=== PATIENT | female | born 1945 | race Caucasian/White ===

== ENCOUNTER 2017-07-15 11:05 | Outpatient (CLI) | payer MEDICARE, BC | END 2017-07-15 11:06 | disposition home or self-care (01) | LOC: BICMAMMO 11:05 | PROVIDERS: ATTEND Obstetrics & Gynecology | DX: Z12.31 Encounter for screening mammogram for malignant neoplasm of breast (principal) | CPT/HCPCS: 77063; 77067 ==

== ENCOUNTER 2018-01-20 09:38 | Emergency (ER) | payer MEDICARE, BC ==
[2018-01-20] MEDS ORDERED: Lorazepam 2 MG/ML VIAL ONE (10:01)
[2018-01-20 10:42] LABS: ALT (SGPT) 16 U/L (8-55); AST (SGOT) 19 U/L (5-34); Albumin 4.1 g/dL (3.4-4.8); Alkaline Phosphatase 81 U/L (40-150); Anion Gap 14 mmol/L (10-20); BUN (Urea Nitrogen) 18 mg/dL (9.8-20.1); Bilirubin, Total 0.5 mg/dL (0.2-1.2); Calc. Creatinine Clearance 0 mL/min (70-130); Calcium 9.2 mg/dL (7.8-10.44); Carbon Dioxide 23 mmol/L (23-31); Chloride 106 mmol/L (98-107); Estimated GFR-MDRD 71; Globulin 2.7 g/dL (2.4-3.5); Glucose 122 mg/dL (83-110); Potassium 3.8 mmol/L (3.5-5.1); Protein, Total 6.8 g/dL (6.0-8.3); Sodium 139 mmol/L (136-145)
[2018-01-20 10:48] LABS: CKMB 1.7 ng/mL (0-6.6); Troponin I Less than 0.010 ng/mL (< 0.028)
[2018-01-20 10:55] LABS: #Eosinphils 0.1 thou/uL (0.0-0.7); #Lymphocytes 2.1 thou/uL (1.20-3.40); #Monocytes 0.4 thou/uL (0.11-0.59); #Neutrophils 5.1 thou/uL (1.40-6.50); %Basophils 0.4 % (0.0-1.0); %Eosinophils 1.6 % (0.0-10.0); %Monocytes 5.7 % (0.0-10.0); %Neutrophils 65.3 % (42.0-75.0); Hemoglobin 13.9 g/dL (12.0-16.0); Mean Corpuscular HGB CONC 32.5 g/dL (32.0-36.0); Mean Corpuscular Hemoglobin 30.7 pg (27.0-31.0); Mean Corpuscular Volume 94.4 fL (78.0-98.0); Mean Platelet Volume 7.9 fL (7.4-10.4); Platelet Count 292 thou/uL (130-400); RBC Distribution Width 11.4 % (11.5-14.5); Red Blood Cell (RBC) Count 4.51 mill/uL (4.20-5.40); White Blood Cell (WBC) Count 7.7 thou/uL (4.8-10.8)
--- NOTE | 2018-01-20 11:34 | CT ---
CT BRAIN WITHOUT CONTRAST: History: Generalized malaise and weakness. Numbness in all extremities. FINDINGS: No evidence of acute hemorrhage, infarct, midline shift, or abnormal extraaxial fluid collections are seen. Ventricular size is normal and the basilar cisterns patent. The bony calvarium is intact. The visualized paranasal sinuses and mastoid air cells are well aerated. IMPRESSION: No CT evidence of acute intracranial process. POS: [facility]
== END 2018-01-20 11:53 | disposition home or self-care (01) ==
LOC: ERS 09:38
DX: F41.9 Anxiety disorder, unspecified (principal); K21.9 Gastro-esophageal reflux disease without esophagitis; E78.2 Mixed hyperlipidemia; I10 Essential (primary) hypertension; Z79.899 Other long term (current) drug therapy; Z79.82 Long term (current) use of aspirin
CPT/HCPCS: 70450; 80053; 82553; 84484; 85025; 93005; 96374; J2060

== ENCOUNTER 2018-07-16 10:22 | Outpatient (CLI) | payer MEDICARE, BC ==
--- NOTE | 2018-07-21 13:23 | MMO ---
Bilateral MAMMO Bilat Screen [facility]. CLINICAL HISTORY: Patient is 72 years old and is seen for screening. The patient has no family history of breast cancer. The patient has no personal history of cancer. The patient has a history of left Excisional Biopsy in 2015 - benign. VIEWS: The views performed were: bilateral craniocaudal with tomosynthesis and bilateral mediolateral oblique with tomosynthesis. FILMS COMPARED: The present examination has been compared to prior imaging studies performed at [facility] on 02/19/2000, 02/20/2001, 03/17/2002, 03/18/2003, 04/04/2004, 04/17/2005, 04/17/2006, 05/03/2008, 05/04/2009, 05/05/2010, 05/14/2011, 05/15/2012, 06/11/2013, 06/14/2014, 06/18/2014, 06/18/2015, 07/04/2016 and 07/15/2017. MAMMOGRAM FINDINGS: There are scattered fibroglandular densities. There are benign appearing calcifications seen in both breasts. There are no suspicious masses, calcifications or areas of architectural distortion. IMPRESSION: THERE IS NO MAMMOGRAPHIC EVIDENCE OF MALIGNANCY. A ROUTINE FOLLOW-UP MAMMOGRAM IN 1 YEAR IS RECOMMENDED. THE RESULTS OF THIS EXAM WERE SENT TO THE PATIENT. ACR BI-RADS Category 2 - Benign finding MAMMOGRAPHY NOTE: 1. A negative mammogram report should not delay a biopsy if a dominant of clinically suspicious mass is present. 2. Approximately 10% to 15% of breast cancers are not detected by mammography. 3. Adenosis and dense breasts may obscure an underlying neoplasm.
== END 2018-07-16 10:23 | disposition home or self-care (01) ==
LOC: BICMAMMO 10:22
PROVIDERS: ATTEND Obstetrics & Gynecology
DX: Z12.31 Encounter for screening mammogram for malignant neoplasm of breast (principal); Z91.89 Other specified personal risk factors, not elsewhere classified
CPT/HCPCS: 77063; 77067

== ENCOUNTER 2019-09-18 10:05 | Outpatient (CLI) | payer MEDICARE, BC ==
--- NOTE | 2019-09-18 10:59 | MMO ---
Bilateral MAMMO Bilat Screen [facility]. CLINICAL HISTORY: Patient is 73 years old and is seen for screening. The patient has no family history of breast cancer. The patient has no personal history of cancer. The patient has a history of left Excisional Biopsy in 2015 - benign. VIEWS: The views performed were: bilateral craniocaudal with tomosynthesis and bilateral mediolateral oblique with tomosynthesis. FILMS COMPARED: The present examination has been compared to prior imaging studies performed at [facility] on 07/04/2016, 07/15/2017 and 07/16/2018. This study has been interpreted with the assistance of computer-aided detection. MAMMOGRAM FINDINGS: There are scattered fibroglandular densities. There are stable benign appearing calcifications seen in both breasts. There are no suspicious masses, suspicious calcifications, or new areas of architectural distortion. IMPRESSION: THERE IS NO MAMMOGRAPHIC EVIDENCE OF MALIGNANCY. A ROUTINE FOLLOW-UP MAMMOGRAM IN 1 YEAR IS RECOMMENDED. THE RESULTS OF THIS EXAM WERE SENT TO THE PATIENT. ACR BI-RADS Category 2 - Benign finding MAMMOGRAPHY NOTE: 1. A negative mammogram report should not delay a biopsy if a dominant of clinically suspicious mass is present. 2. Approximately 10% to 15% of breast cancers are not detected by mammography. 3. Adenosis and dense breasts may obscure an underlying neoplasm. Reported by: ELLEN RUIZ MD Electonically Signed: [id number]
== END 2019-09-18 10:06 | disposition home or self-care (01) ==
LOC: BICMAMMO 10:05
PROVIDERS: ATTEND Obstetrics & Gynecology
DX: Z12.31 Encounter for screening mammogram for malignant neoplasm of breast (principal); Z91.89 Other specified personal risk factors, not elsewhere classified
CPT/HCPCS: 77063; 77067

== ENCOUNTER 2020-08-25 11:30 | Outpatient (CLI) | payer MEDICARE, BC | END 2020-08-25 11:31 | disposition home or self-care (01) | LOC: BICRAD 11:30 | PROVIDERS: ATTEND Internal Medicine Cardiovascular Disease | DX: R06.02 Shortness of breath (principal) | CPT/HCPCS: 71046 ==

== ENCOUNTER 2020-09-06 11:52 | Outpatient (CLI) | payer MEDICARE, BC ==
[~2020-09-06 11:52] MED LIST: Iopamidol 370 76% 100 ML VIAL ONE
== END 2020-09-06 11:53 | disposition home or self-care (01) ==
LOC: CT 11:52
PROVIDERS: ATTEND Thoracic Surgery (Cardiothoracic Vascular Surgery)
DX: K44.9 Diaphragmatic hernia without obstruction or gangrene (principal); R91.8 Other nonspecific abnormal finding of lung field
CPT/HCPCS: 71260; 74160; 82565; Q9967

== ENCOUNTER 2020-09-22 09:13 | Outpatient (CLI) | payer MEDICARE, BC ==
[2020-09-22 10:07] LABS: #Eosinphils 0.1 10x3/uL (0.0-0.5); #Monocytes 0.5 10x3/uL (0.0-1.1); #Neutrophils 4.6 10x3/uL (1.5-8.4); %Basophils 0.6 % (0.0-2.0); %Eosinophils 2.1 % (0.0-6.0); %Lymphocytes 21.7 % (18.0-47.0); %Monocytes 7.5 % (0.0-10.0); %Neutrophils 67.5 % (40.0-75.0); Hemoglobin 13.4 g/dL (12.0-15.5); Mean Corpuscular HGB CONC 31.8 g/dL (32.0-36.0); Mean Corpuscular Hemoglobin 30.1 pg (27.0-33.0); Mean Corpuscular Volume 94.6 fl (81.6-98.3); Mean Platelet Volume 10.4 fl (7.4-10.4); Platelet Count 280 10x3/uL (150-450); RBC Distribution Width 12.7 % (11.5-14.5); Red Blood Cell (RBC) Count 4.45 10x6/uL (3.90-5.03); White Blood Cell (WBC) Count 6.8 10x3/uL (3.5-10.5)
[2020-09-22 11:05] LABS: Anion Gap 14 mmol/L (10-20); BUN (Urea Nitrogen) 18 mg/dL (9.8-20.1); Calc. Creatinine Clearance 0 mL/min (70-130); Calcium 9.6 mg/dL (7.8-10.44); Carbon Dioxide 26 mmol/L (23-31); Chloride 107 mmol/L (98-107); Glucose 65 mg/dL (83-110); Potassium 4.6 mmol/L (3.5-5.1); Sodium 142 mmol/L (136-145)
[2020-09-23 03:29] LABS: SARS-CoV-2 NAA Rapid Test Not Detected (NotDetected)
== END 2020-09-22 09:14 | disposition home or self-care (01) ==
LOC: LABBT 09:13
PROVIDERS: ATTEND Surgery
DX: Z01.812 Encounter for preprocedural laboratory examination (principal); K44.9 Diaphragmatic hernia without obstruction or gangrene; Z20.822 Contact with and (suspected) exposure to COVID-19
CPT/HCPCS: 80048; 85025; U0002; U0005; 87635; U0003

== ENCOUNTER 2020-09-22 09:15 | Observation (INO) | payer MEDICARE, BC ==
[2020-09-22 13:48] VITALS: BMI 26.5
[2020-09-27] MEDS ORDERED: Levofloxacin 500 mg/D5W 100 ml Premix Bag ONE (10:36)
[2020-09-27] MEDS ORDERED: Bupivacaine 0.25% HCL 30 ML VIAL ONE (10:37)
[2020-09-27] MEDS ORDERED: Lidocaine 1% w/Epinephrine 1:100K 20 ML VIAL ONE (10:37)
[2020-09-27] MEDS ORDERED: Fentanyl 100 MCG/2 ML VIAL ONE ×3 (10:39→15:21)
[2020-09-27] MEDS ORDERED: PROPOFOL 200 MG/20 ML VIAL ONE (10:52)
[2020-09-27] MEDS ORDERED: Rocuronium Bromide 10 MG/ML (10ML VIAL) ONE (10:52)
[2020-09-27] MEDS ORDERED: Dexamethasone 20 MG/5 ML VIAL ONE (10:52)
[2020-09-27] MEDS ORDERED: ePHEDrine Sulfate 50 MG/10 ML VIAL ONE ×2 (10:52→11:57)
[2020-09-27] MEDS ORDERED: PHENYLEPHRINE-NS 100 MCG/ML 10 ML SYRINGE ONE (10:52)
[2020-09-27] MEDS ORDERED: Lidocaine 1% PF 5 ML VIAL ONE (10:52)
[2020-09-27] MEDS ORDERED: Ondansetron PF 4 MG/2 ML Vial ONE (10:52)
[2020-09-27] MEDS ORDERED: Glycopyrrolate 0.2 MG/ML 5 ML SYRINGE ONE (10:52)
[2020-09-27] MEDS ORDERED: Promethazine HCl 25 MG/ML VIAL SLOW IVP PRN (12:58)
[2020-09-27] MEDS ORDERED: Ondansetron HCl/PF 4 MG/2 ML Vial IVP PRN (12:58)
[2020-09-27] MEDS ORDERED: Ketorolac Tromethamine 30 MG/ML VIAL IVP PRN (12:58)
[2020-09-27] MEDS ORDERED: Meperidine HCl/PF 25 MG/ML VIAL SLOW IVP PRN (12:58)
[2020-09-27] MEDS ORDERED: HYDROmorphone 2 MG/ML VIAL SLOW IVP PRN (12:58)
[2020-09-27] MEDS ORDERED: HYDROmorphone 2 MG/ML VIAL ONE (13:23)
[2020-09-27] MEDS ORDERED: Morphine 2 MG/ML VIAL SLOW IVP PRN (16:33)
[2020-09-27] MEDS ORDERED: Dextrose 50% Abboject 50 ML SYRINGE SLOW IVP PRN (16:33)
[2020-09-27] MEDS ORDERED: Promethazine HCl 25 MG/ML VIAL IM PRN (16:33)
[2020-09-27] MEDS ORDERED: Morphine 4 MG/ML VIAL SLOW IVP PRN (16:33)
[2020-09-27] MEDS ORDERED: Ondansetron PF 4 MG/2 ML Vial IVP PRN (16:33)
[2020-09-27] MEDS ORDERED: hydrALAZINE 20 MG/ML VIAL SLOW IVP PRN (16:33)
[2020-09-27] MEDS ORDERED: Dextrose 5% in Water 1,000 ML IV PRN (16:33)
[2020-09-27] MEDS: Sodium Chloride 0.9% 1,000 ML IV SCH (19:42)
[2020-09-27] MEDS: Losartan 25 MG TAB PO SCH (20:46)
[2020-09-27] MEDS: ALPRAZolam 0.25 MG TAB PO SCH (20:47)
[2020-09-27] MEDS: Hydrocodone-Acetamin 15 ML UDCUP PO PRN (20:47)
[2020-09-27] MEDS: Escitalopram Oxalate 10 mg Tablet PO SCH (20:47)
[2020-09-28] MEDS: Hydrocodone-Acetamin 15 ML UDCUP PO PRN ×4 (02:57→22:39)
[2020-09-28] MEDS: Enoxaparin Sodium 40 MG/0.4 ML SYRINGE SC SCH (08:15)
[2020-09-28] MEDS: medroxyPROGESTERone Acetate 2.5 MG TAB PO SCH (08:16)
[2020-09-28] MEDS: Pantoprazole 40 MG VIAL IVP SCH (08:17)
[2020-09-28] MEDS ORDERED: Docusate 100 MG CAP PO SCH ×2 (10:00→12:15)
[2020-09-28] MEDS ORDERED: Estradiol 1 MG TAB PO SCH (12:15)
[2020-09-28] MEDS: Sodium Chloride 0.9% 1,000 ML IV SCH (12:43)
[2020-09-28] MEDS: Ibuprofen 600 MG TAB PO PRN (18:16)
[2020-09-28] MEDS: ALPRAZolam 0.25 MG TAB PO SCH (20:16)
[2020-09-28] MEDS: Losartan 25 MG TAB PO SCH (20:16)
[2020-09-28] MEDS: Escitalopram Oxalate 10 mg Tablet PO SCH (20:17)
[2020-09-29] MEDS: Ibuprofen 600 MG TAB PO PRN (06:41)
[2020-09-29] MEDS ORDERED: Estradiol 1 MG TAB PO SCH (09:00)
[2020-09-29] MEDS: Sodium Chloride 0.9% 1,000 ML IV SCH (09:01)
[2020-09-29] MEDS: Enoxaparin Sodium 40 MG/0.4 ML SYRINGE SC SCH (09:01)
[2020-09-29] MEDS: Pantoprazole 40 MG VIAL IVP SCH (09:02)
[2020-09-29] MEDS: medroxyPROGESTERone Acetate 2.5 MG TAB PO SCH (09:02)
[2020-09-29 11:24] VITALS: BP 103/52; TEMP 98.1
[2020-09-30] MEDS ORDERED: Docusate 100 MG CAP PO SCH (10:00)
== END 2020-09-29 11:15 | disposition home or self-care (01) ==
LOC: SURG A 09-27 09:12 → INTOOBSV 09-27 09:12 → EDSTATUS 09-27 09:15 → SJJU 09-27 16:10
PROVIDERS: ADMIT Surgery; ATTEND Surgery
PROC: 0DV44ZZ Restriction of Esophagogastric Junction, Percutaneous Endoscopic Approach (ICD-10-PCS; principal; 2020-09-27)
DX: K44.9 Diaphragmatic hernia without obstruction or gangrene (principal); K21.9 Gastro-esophageal reflux disease without esophagitis; I10 Essential (primary) hypertension; M81.0 Age-related osteoporosis without current pathological fracture; E78.5 Hyperlipidemia, unspecified; Z79.82 Long term (current) use of aspirin; Z79.83 Long term (current) use of bisphosphonates; Z79.899 Other long term (current) drug therapy; Z88.0 Allergy status to penicillin; Z88.1 Allergy status to other antibiotic agents; M25.519 Pain in unspecified shoulder; R07.89 Other chest pain
CPT/HCPCS: 96372; 96374; 96376; C9113; G0378; J1100; J1170; J1650; J1956; J2405; J2704; J3010; S0020

== ENCOUNTER 2020-10-24 10:46 | Outpatient (CLI) | payer MEDICARE, BC | END 2020-10-24 10:47 | disposition home or self-care (01) | LOC: BICMAMMO 10:46 | PROVIDERS: ATTEND Obstetrics & Gynecology | DX: Z12.31 Encounter for screening mammogram for malignant neoplasm of breast (principal); Z91.89 Other specified personal risk factors, not elsewhere classified | CPT/HCPCS: 77063; 77067 ==

== ENCOUNTER 2021-03-02 10:05 | Outpatient (CLI) | payer MEDICARE, BC ==
[2021-03-03 00:05] LABS: SARS-CoV-2 PCR by NAA Not Detected (NotDetected)
== END 2021-03-02 10:06 | disposition home or self-care (01) ==
LOC: LABBT 10:05
PROVIDERS: ATTEND Internal Medicine Gastroenterology
DX: Z01.812 Encounter for preprocedural laboratory examination (principal); R13.10 Dysphagia, unspecified; Z20.822 Contact with and (suspected) exposure to COVID-19
CPT/HCPCS: U0003; U0005

== ENCOUNTER 2021-03-07 09:32 | Outpatient (CLI) | payer MEDICARE, BC | END 2021-03-07 09:33 | disposition home or self-care (01) | LOC: RAD 09:32 | PROVIDERS: ATTEND Internal Medicine Gastroenterology | DX: R13.10 Dysphagia, unspecified (principal); Z11.59 Encounter for screening for other viral diseases | CPT/HCPCS: 74220 ==

== ENCOUNTER 2021-03-24 08:58 | Outpatient (CLI) | payer MEDICARE, BC ==
[2021-03-24 23:17] LABS: SARS-CoV-2 PCR by NAA Not Detected (NotDetected)
== END 2021-03-24 08:59 | disposition home or self-care (01) ==
LOC: LABBT 08:58
PROVIDERS: ATTEND Surgery
DX: Z01.812 Encounter for preprocedural laboratory examination (principal); K44.9 Diaphragmatic hernia without obstruction or gangrene; Z20.822 Contact with and (suspected) exposure to COVID-19
CPT/HCPCS: U0003; U0005

== ENCOUNTER 2021-03-29 10:30 | Day surgery (SDC) | payer MEDICARE, BC ==
[2021-03-29 15:19] VITALS: BMI 25.2
[2021-03-30] MEDS ORDERED: Fentanyl 100 MCG/2 ML VIAL ONE (06:12)
[2021-03-30] MEDS ORDERED: Bupivacaine 0.25% HCL 30 ML VIAL ONE (07:07)
[2021-03-30] MEDS ORDERED: Lidocaine 1% w/Epinephrine 1:100K 20 ML VIAL ONE (07:07)
== END 2021-03-29 13:35 | disposition home or self-care (01) ==
LOC: SDC 10:30
PROVIDERS: ATTEND Surgery
DX: K44.9 Diaphragmatic hernia without obstruction or gangrene (principal); Z53.29 Procedure and treatment not carried out because of patient's decision for other reasons; Z79.82 Long term (current) use of aspirin; Z79.83 Long term (current) use of bisphosphonates; Z79.899 Other long term (current) drug therapy; Z88.0 Allergy status to penicillin; Z88.1 Allergy status to other antibiotic agents
CPT/HCPCS: 93005; 93010; J3010; S0020

== ENCOUNTER 2021-03-30 06:15 | Inpatient (IN) | payer MEDICARE, BC ==
[2021-03-30] MEDS ORDERED: Levofloxacin 500 mg/D5W 100 ml Premix Bag ONE (07:17)
[2021-03-30] MEDS ORDERED: Rocuronium Bromide 10 MG/ML (10ML VIAL) ONE (07:34)
[2021-03-30] MEDS ORDERED: Dexamethasone 20 MG/5 ML VIAL ONE (07:34)
[2021-03-30] MEDS ORDERED: Lidocaine 1% PF 5 ML VIAL ONE (07:34)
[2021-03-30] MEDS ORDERED: Phenylephrine 10 MG/ML VIAL ONE (07:34)
[2021-03-30] MEDS ORDERED: PROPOFOL 200 MG/20 ML VIAL ONE (07:34)
[2021-03-30] MEDS ORDERED: ePHEDrine 50 MG/ML VIAL ONE (07:34)
[2021-03-30] MEDS ORDERED: Glycopyrrolate 0.2 MG/ML 5 ML SYRINGE ONE (07:34)
[2021-03-30] MEDS ORDERED: Ondansetron PF 4 MG/2 ML Vial ONE (07:34)
[2021-03-30] MEDS ORDERED: Promethazine HCl 25 MG/ML VIAL IVPB PRN (09:50)
[2021-03-30] MEDS ORDERED: Promethazine HCl 25 MG/ML VIAL IM PRN ×2 (09:50→12:00)
[2021-03-30] MEDS ORDERED: Ondansetron HCl/PF 4 MG/2 ML Vial IVP PRN (09:50)
[2021-03-30] MEDS ORDERED: Fentanyl 100 MCG/2 ML VIAL ONE ×3 (10:00→10:47)
[2021-03-30] MEDS ORDERED: Dextrose 5% in Water 1,000 ML IV PRN (12:00)
[2021-03-30] MEDS ORDERED: Morphine 4 MG/ML VIAL SLOW IVP PRN (12:00)
[2021-03-30] MEDS ORDERED: Ondansetron PF 4 MG/2 ML Vial IVP PRN (12:00)
[2021-03-30] MEDS ORDERED: hydrALAZINE 20 MG/ML VIAL SLOW IVP PRN (12:00)
[2021-03-30] MEDS ORDERED: Dextrose 50% Abboject 50 ML SYRINGE SLOW IVP PRN (12:00)
[2021-03-30] MEDS: Hydrocodone-Acetamin 15 ML UDCUP PO PRN ×2 (13:25→20:22)
[2021-03-30] MEDS: D5 1/2 NS w/20 mEq KCL 1,000 ML IV SCH (13:26)
[2021-03-30] MEDS: Ibuprofen 600 MG TAB PO PRN ×2 (15:10→20:59)
[2021-03-30] MEDS ORDERED: ALPRAZolam 0.25 MG TAB PO PRN (17:02)
[2021-03-30] MEDS ORDERED: ALPRAZolam 0.25 MG TAB PO SCH ×2 (17:15→21:00)
[2021-03-30 19:00] VITALS: BMI 250.5
[2021-03-31] MEDS: D5 1/2 NS w/20 mEq KCL 1,000 ML IV SCH (02:40)
[2021-03-31] MEDS: Ibuprofen 600 MG TAB PO PRN ×2 (02:40→09:24)
[2021-03-31 05:27] LABS: Hemoglobin 12.3 g/dL (12.0-16.0); Platelet Count 259 thou/uL (130-400)
[2021-03-31 05:49] LABS: Anion Gap 10 mmol/L (10-20); BUN (Urea Nitrogen) 12 mg/dL (9.8-20.1); Calc. Creatinine Clearance 0 mL/min (70-130); Calcium 9.1 mg/dL (7.8-10.44); Carbon Dioxide 27 mmol/L (23-31); Chloride 108 mmol/L (98-107); Glucose 104 mg/dL (83-110); Potassium 4.3 mmol/L (3.5-5.1); Sodium 141 mmol/L (136-145)
[2021-03-31] MEDS ORDERED: Enoxaparin Sodium 40 MG/0.4 ML SYRINGE SC SCH (09:00)
[2021-03-31] MEDS ORDERED: Pantoprazole 40 MG VIAL IVP SCH (09:00)
[2021-03-31 15:50] VITALS: BP 189/80; TEMP 98.8
== END 2021-03-31 15:34 | disposition home or self-care (01) | DRG 328 ==
LOC: SDC 06:15 → SJJU 09:31
PROVIDERS: ADMIT Surgery; ATTEND Surgery
PROC: 0BUT4JZ Supplement Diaphragm with Synthetic Substitute, Percutaneous Endoscopic Approach (ICD-10-PCS; principal; 2021-03-30)
PROC: 0DV44ZZ Restriction of Esophagogastric Junction, Percutaneous Endoscopic Approach (ICD-10-PCS; 2021-03-30)
PROC: 8E0W4CZ Robotic Assisted Procedure of Trunk Region, Percutaneous Endoscopic Approach (ICD-10-PCS; 2021-03-30)
PROC: 0DJ08ZZ Inspection of Upper Intestinal Tract, Via Natural or Artificial Opening Endoscopic (ICD-10-PCS; 2021-03-30)
DX: K44.9 Diaphragmatic hernia without obstruction or gangrene (principal); I10 Essential (primary) hypertension; E78.5 Hyperlipidemia, unspecified; J30.2 Other seasonal allergic rhinitis; M19.90 Unspecified osteoarthritis, unspecified site; R32 Unspecified urinary incontinence; Z88.0 Allergy status to penicillin; Z88.1 Allergy status to other antibiotic agents; Z90.711 Acquired absence of uterus with remaining cervical stump
CPT/HCPCS: 36415; 80048; 85014; 85018; 85049; C1776; C9113; J0360; J1100; J1650; J1956; J2270; J2370; J2405; J2704; J3010; J3480; J3490; Q4130

== ENCOUNTER 2021-04-12 09:08 | Day surgery (SDC) | payer MEDICARE, BC ==
[2021-04-12] MEDS ORDERED: Sodium Chloride 0.9% 10 ML ONE ×2 (09:23)
[2021-04-12 09:43] VITALS: BP 132/60; TEMP 98.2
[2021-04-12] MEDS ORDERED: Ondansetron PF 4 MG/2 ML Vial IVP PRN (09:46)
[2021-04-12] MEDS ORDERED: Thiamine HCl 200 MG/2 ML VIAL SLOW IVP SCH (10:00)
[2021-04-12] MEDS ORDERED: Sodium Chloride 0.9% 1,000 ML IV SCH (10:00)
[2021-04-12] MEDS ORDERED: Multivitamins, Adult 10 ML, Thiamine HCl 100 MG in Sodium Chloride 0.9% 1,000 ML IV SCH (10:15)
[2021-04-12] MEDS ORDERED: Multivitamins, Adult 10 ML in Sodium Chloride 0.9% 500 ML IV SCH (11:00)
== END 2021-04-12 13:44 | disposition home or self-care (01) ==
LOC: ONC/OP 09:08
PROVIDERS: ATTEND Surgery
DX: E86.0 Dehydration (principal); Z88.0 Allergy status to penicillin
CPT/HCPCS: 96361; 96365; 96366; J3411; J7030; J7050

== ENCOUNTER 2021-10-25 09:31 | Outpatient (CLI) | payer MEDICARE, BC | END 2021-10-25 09:32 | disposition home or self-care (01) | LOC: BICMAMMO 09:31 | PROVIDERS: ATTEND Family Medicine | DX: Z12.31 Encounter for screening mammogram for malignant neoplasm of breast (principal); Z91.89 Other specified personal risk factors, not elsewhere classified | CPT/HCPCS: 77063; 77067 ==

== ENCOUNTER 2022-01-15 18:00 | Outpatient (CLI) | payer MEDICARE, BC | END 2022-01-15 18:01 | disposition home or self-care (01) | LOC: SLEEPLAB 18:00 | PROVIDERS: ATTEND Family Medicine | DX: F51.9 Sleep disorder not due to a substance or known physiological condition, unspecified (principal); G47.33 Obstructive sleep apnea (adult) (pediatric); G25.81 Restless legs syndrome; G47.61 Periodic limb movement disorder; G47.9 Sleep disorder, unspecified; R53.82 Chronic fatigue, unspecified; G31.84 Mild cognitive impairment of uncertain or unknown etiology; R51.9 Headache, unspecified; K21.9 Gastro-esophageal reflux disease without esophagitis; R06.83 Snoring; F41.9 Anxiety disorder, unspecified; G47.00 Insomnia, unspecified; F32.9 Major depressive disorder, single episode, unspecified; I10 Essential (primary) hypertension | CPT/HCPCS: 95800 ==

== ENCOUNTER 2022-03-29 07:28 | Outpatient (CLI) | payer MEDICARE, BC | END 2022-03-29 07:29 | disposition home or self-care (01) | LOC: CT 07:28 | PROVIDERS: ATTEND Internal Medicine Gastroenterology | DX: R10.9 Unspecified abdominal pain (principal); R11.2 Nausea with vomiting, unspecified; M43.17 Spondylolisthesis, lumbosacral region; D25.9 Leiomyoma of uterus, unspecified; R91.1 Solitary pulmonary nodule; R19.5 Other fecal abnormalities; Z98.890 Other specified postprocedural states | CPT/HCPCS: 72193; 74177; 82565 ==

== ENCOUNTER 2022-07-04 08:46 | Outpatient (CLI) | payer MEDICARE, BC | END 2022-07-04 08:47 | disposition home or self-care (01) | LOC: RAD 08:46 | PROVIDERS: ATTEND Otolaryngology Plastic Surgery within the Head & Neck | DX: R13.10 Dysphagia, unspecified (principal); R63.30 Feeding difficulties, unspecified | CPT/HCPCS: 74220; 74230 ==

== ENCOUNTER 2022-11-08 10:55 | Outpatient (CLI) | payer MEDICARE, BC | END 2022-11-08 10:56 | disposition home or self-care (01) | LOC: BICMAMMO 10:55 | PROVIDERS: ATTEND Obstetrics & Gynecology | DX: Z12.31 Encounter for screening mammogram for malignant neoplasm of breast (principal); Z91.89 Other specified personal risk factors, not elsewhere classified | CPT/HCPCS: 77063; 77067 ==

== ENCOUNTER 2023-11-21 13:23 | Outpatient (CLI) | payer MEDICARE | END 2023-11-21 13:24 | disposition home or self-care (01) | LOC: BICMAMMO 13:23 | PROVIDERS: ATTEND Obstetrics & Gynecology | DX: Z12.31 Encounter for screening mammogram for malignant neoplasm of breast (principal); Z91.89 Other specified personal risk factors, not elsewhere classified | CPT/HCPCS: 77063; 77067 ==

== ENCOUNTER 2024-11-24 09:09 | Outpatient (CLI) | payer MEDICARE | END 2024-11-24 09:10 | disposition home or self-care (01) | LOC: BICMAMMO 09:09 | PROVIDERS: ATTEND Obstetrics & Gynecology | DX: Z12.31 Encounter for screening mammogram for malignant neoplasm of breast (principal); Z91.89 Other specified personal risk factors, not elsewhere classified | CPT/HCPCS: 77063; 77067 ==